=== PATIENT | male | born 1965 | race Caucasian/White ===

== ENCOUNTER → 2019-12-18 | Outpatient (CLI) | payer OTHER | END | disposition home or self-care (01) | LOC: CFH 07:01 | PROVIDERS: ATTEND Internal Medicine Cardiovascular Disease | DX: I08.1 Rheumatic disorders of both mitral and tricuspid valves (principal); I25.9 Chronic ischemic heart disease, unspecified; I11.9 Hypertensive heart disease without heart failure | CPT/HCPCS: 78452; 93017; 93306; A9502 ==

== ENCOUNTER 2020-02-03 12:50 | Day surgery (SDC) | payer OTHER ==
[~2020-02-03] VITALS: Ht 165.1 cm; Wt 83.0 kg
[2020-02-03 13:10] VITALS: BP 159/103
[2020-02-03] MEDS ORDERED: ENAL20TA PO (13:10)
[2020-02-03] MEDS ORDERED: ACYC-57 PO (13:10)
[2020-02-03] MEDS ORDERED: PRAV10TA2 PO (13:10)
[2020-02-03] MEDS ORDERED: MELO15TA6 PO (13:10)
[2020-02-03] MEDS ORDERED: DOXA1TAB2 PO (13:10)
[2020-02-03] MEDS: DIPHENHYDRAMINE 50 MG/ML, 1ML IVPush ONE ×2 (13:32→15:26)
[2020-02-03 13:45] LABS: INTERNATIONAL NORMALIZED RATIO 0.97 (0.93-1.1); PROTHROMBIN TIME 10.3 Seconds (9.6-11.5)
[2020-02-03 13:47] LABS: ALBUMIN 3.9 g/dL (3.4-5.0); ANION GAP 6 mmol/L (5-15); CALCIUM 8.4 mg/dL (8.5-10.1); CHLORIDE 109 mmol/L (98-107)
[2020-02-03 13:50] LABS: ALANINE AMINOTRANSFERASE 53 U/L (12-78); ALKALINE PHOSPHATASE 61 U/L (45-117); BILIRUBIN,TOTAL 0.6 mg/dL (0.2-1.0); CREATININE 0.77 mg/dL (0.7-1.3); TOTAL PROTEIN 6.9 g/dL (6.4-8.2)
[2020-02-03] MEDS ORDERED: SODIUM CHLORIDE 0.9% 1,000 ML IV SCH ×2 (15:30→17:14)
[2020-02-03] MEDS ORDERED: FENTANYL PF 100 MCG/2ML ONE (16:18)
[2020-02-03] MEDS ORDERED: VERAPAMIL 2.5 MG/ML, 2ML ONE (16:18)
[2020-02-03] MEDS ORDERED: MIDAZOLAM 1 MG/ML, 2ML ONE (16:18)
[2020-02-03] MEDS ORDERED: HEPARIN 1,000 UNITS/ML, 10ML ONE (16:19)
[2020-02-03] MEDS ORDERED: LIDOCAINE-MPF 1%, 5ML ONE (16:19)
[2020-02-03] MEDS ORDERED: DIPHENHYDRAMINE 50 MG/ML, 1ML ONE (21:30)
== END 2020-02-03 18:40 | disposition home or self-care (01) ==
LOC: CACL 12:50
PROVIDERS: ATTEND Internal Medicine Cardiovascular Disease
DX: R94.39 Abnormal result of other cardiovascular function study (principal); I20.0 Unstable angina; I10 Essential (primary) hypertension; E78.2 Mixed hyperlipidemia; E66.3 Overweight; Z68.30 Body mass index [BMI] 30.0-30.9, adult; Z79.01 Long term (current) use of anticoagulants; Z79.1 Long term (current) use of non-steroidal anti-inflammatories (NSAID); Z79.899 Other long term (current) drug therapy; Z87.891 Personal history of nicotine dependence
CPT/HCPCS: 36415; 80053; 85610; 93454; C1769; C1894; J1200; J1644; J2250; J3010; Q9967